=== PATIENT | male | born 1965 | race Caucasian/White ===

== ENCOUNTER → 2018-02-24 | Outpatient (CLI) | payer OTHER ==
[2013-11-02 12:45] VITALS: BMI 50.5
[~2018-02-24] MED LIST: ATOR20TA22 PO; ATOR40TA69 PO; FLAS1EAC2 TD; FLAS1KIT2; INSU100I30 SQ; INSU100V24 SQ; LANC-648 MC; LANI SUBQ; LEV125 PO; LEVO150T78 PO; LEVO175T42 PO; LOSA100T69 PO; LOSA50TA74 PO; METF-452 PO; METF500T4 PO; MULT1TAB64 PO; NEED-653; NEED-653 MC; TRAZ100T31 PO; TRAZ150T8 PO; VAL80 PO; VER40 FT; VERA120C9 PO
== END ==
LOC: LAB 11:13
PROVIDERS: ATTEND Internal Medicine
DX: E11.9 Type 2 diabetes mellitus without complications (principal)
CPT/HCPCS: 81001; 82043